=== PATIENT | female | born 1975 | race Two or more races ===

== ENCOUNTER 2019-05-30 13:57 | Emergency (ER) | payer OTHER ==
[~2019-05-30] VITALS: Ht 154.9 cm; Wt 66.5 kg
[~2019-05-30 13:57] MED LIST: BUPR100T11 PO; ESCI20TA PO; LABE100T6 PO; NALT50TA PO
[2019-05-30 13:58] VITALS: BP 160/101
== END 2019-05-30 16:09 | disposition home or self-care (01) ==
LOC: ED 15:44
DX: S16.1XXA Strain of muscle, fascia and tendon at neck level, initial encounter (principal); S39.012A Strain of muscle, fascia and tendon of lower back, initial encounter; V49.59XA Passenger injured in collision with other motor vehicles in traffic accident, initial encounter; I10 Essential (primary) hypertension; Y93.89 Activity, other specified; Y92.410 Unspecified street and highway as the place of occurrence of the external cause; Y99.8 Other external cause status
CPT/HCPCS: 72110; 72125; 99284

== ENCOUNTER 2020-05-25 21:08 | Emergency (ER) | payer SELFPAY ==
[~2020-05-25] VITALS: Ht 154.9 cm; Wt 73.3 kg
[~2020-05-25 21:08] MED LIST changes: -ESCI20TA PO; +ESCI20TA8 PO
[2020-05-25] MEDS ORDERED: DIPHENHYDRAMINE 25 MG CAPSULE PO ONE (21:30)
[2020-05-25] MEDS ORDERED: FAMOTIDINE 20 MG TABLET PO ONE (21:30)
[2020-05-25] MEDS ORDERED: FAMOTIDINE 20 MG TABLET ONE (22:20)
[2020-05-25] MEDS ORDERED: DIPHENHYDRAMINE 25 MG CAPSULE ONE (22:21)
[2020-05-25 22:44] VITALS: BP 165/99
--- NOTE | 2020-05-25 22:46 | NUR ---
erica rn: pt dc with family, explained food journal, soap/detergent etc for skin rash. pt spoke with md gamble about drug/med interaction. dc with family home, f/u with pcp, pt verbalized understanding.
== END 2020-05-25 22:48 | disposition home or self-care (01) ==
LOC: ED 22:00
DX: L51.9 Erythema multiforme, unspecified (principal); I10 Essential (primary) hypertension; F17.290 Nicotine dependence, other tobacco product, uncomplicated
CPT/HCPCS: 87081; 87880; 99284; 99406; J7512; Q0163

== ENCOUNTER 2020-06-01 14:25 | Emergency (ER) | payer SELFPAY ==
[~2020-06-01] VITALS: Ht 154.9 cm; Wt 72.0 kg
[2020-06-01 14:28] VITALS: BP 132/88
--- NOTE | 2020-06-01 15:17 | NUR ---
"I HAVE A FULL BODY RASH. I CAME LAST WEEK FOR IT AND WAS GIVEN PREDNISONE AND THE RASH IS ONLY GETTING WORSE. I CALELD MY PRIMARY AND THEY TOLD ME TO COME TO THE ER AGAIN". RASH X 1 MONTH. PT IN BED IN GOWN. NAD
[2020-06-01 15:57] LABS: MEAN CORPUSCULAR HEMOGLOBIN 27.6 pg (27.0-34.8); MEAN PLATELET VOLUME 7.5 fL (7.4-10.4); PLATELET COUNT 370 x10^3/uL (130-400); RED BLOOD COUNT 5.44 x10^6/uL (3.82-5.3); RED CELL DISTRIBUTION WIDTH 14.8 % (9.6-15.2)
[2020-06-01] MEDS ORDERED: DIPHENHYDRAMINE 25 MG CAPSULE PO ONE (16:00)
[2020-06-01] MEDS ORDERED: FAMOTIDINE 20 MG TABLET PO ONE (16:00)
[2020-06-01 16:01] LABS: MD YES
[2020-06-01] MEDS ORDERED: FAMOTIDINE 20 MG TABLET ONE (16:01)
[2020-06-01] MEDS ORDERED: DIPHENHYDRAMINE 25 MG CAPSULE ONE (16:02)
[2020-06-01 16:05] LABS: ALANINE AMINOTRANSFERASE 34 U/L (12-78); ALBUMIN 3.2 g/dL (3.4-5.0); ANION GAP 7 mmol/L (5-15); CALCIUM 9.1 mg/dL (8.5-10.1); CHLORIDE 104 mmol/L (98-107); CREATININE 0.76 mg/dL (0.55-1.02)
[2020-06-01 16:07] LABS: ALKALINE PHOSPHATASE 147 U/L (45-117); BILIRUBIN,TOTAL 0.4 mg/dL (0.2-1.0); TOTAL PROTEIN 8.3 g/dL (6.4-8.2)
--- NOTE | 2020-06-01 16:08 | NUR ---
PT SITTING UP IN BED, MEDS GIVEN PER DORINDA, NADN.
[2020-06-01 16:30] LABS: <PLATELET ESTIMATE> ADEQUATE; <PLT MORPHOLOGY> NORMAL PLT MORPH; <RBC MORPHOLOGY> NORMAL; BAND#(MANUAL) 0.12 x10^3/uL; BANDS%(MANUAL) 1 % (0-7); BASOS#(MANUAL) 0.12 x10^3/uL (0-0.1); BASOS% (MANUAL) 1 % (0-1); EOS#(MANUAL) 3.22 x10^3/uL (0.0-0.4); EOS% (MANUAL) 26 % (1-7); LYMPH#(MANUAL) 4.09 x10^3/uL (1-3.4); LYMPHS% (MANUAL) 33 % (22-44); MONOS#(MANUAL) 0.12 x10^3/uL (0.3-2.7); MONOS% (MANUAL) 1 % (2-9); SEG#(MANUAL) 4.71 x10^3/uL (1.8-6.8); SEGS% (MANUAL) 38 % (42-75)
== END 2020-06-01 17:43 | disposition home or self-care (01) ==
LOC: ED 16:30
DX: L23.9 Allergic contact dermatitis, unspecified cause (principal); D72.10 Eosinophilia, unspecified; I10 Essential (primary) hypertension
CPT/HCPCS: 36415; 80053; 85025; 99284; J7512; Q0163